=== PATIENT | female | born 1950 | race Two or more races ===

== ENCOUNTER 2019-07-07 11:39 | Outpatient (CLI) | payer OTHER | END 2019-07-07 11:41 | disposition home or self-care (01) | LOC: RAD 11:39 | DX: M25.511 Pain in right shoulder (principal) ==

== ENCOUNTER 2021-11-01 06:15 | Day surgery (SDC) | payer OTHER ==
[~2021-11-01 06:15] MED LIST: SYNTHROID100 MCG
[2021-11-01] MEDS ORDERED: ULTRAM50 MG PO (09:39)
[2021-11-01] MEDS ORDERED: MIRALAX17 GM PO (09:39)
[2021-11-01] MEDS ORDERED: TYLENOL ARTHRI650 MG PO (09:39)
== END 2021-11-01 11:45 | disposition home or self-care (01) ==
LOC: CIR.AMB 06:15
PROVIDERS: ATTEND Surgery
DX: K80.10 Calculus of gallbladder with chronic cholecystitis without obstruction (principal); Z20.822 Contact with and (suspected) exposure to COVID-19